=== PATIENT | male | born 1980 | race Caucasian/White ===

== ENCOUNTER 2018-03-31 09:30 | Emergency (ER) | payer MEDICAID ==
[~2018-03-31] VITALS: Ht 170.2 cm; Wt 82.0 kg
[2018-03-31] MEDS ORDERED: KETOROLAC 60MG/2ML VIAL IM ONE (10:15)
[2018-03-31] MEDS ORDERED: MORPHINE SULFATE 4 MG/ML CPJ (NOT FOR IM USE) IV ONE (11:15)
[2018-03-31 11:58] LABS: HEMATOCRIT. 42.6 % (42.0-52.0); HEMOGLOBIN. 14.5 g/dL (14.0-18.0); MEAN CORPUSCULAR VOLUME 88.2 fL (80.0-94.0); MEAN PLATELET VOLUME 7.8 fl (7.4-10.4); PLATELET 317 x1000/uL (130-400); RED BLOOD CELL COUNT 4.83 mill/uL (4.7-6.1); RED CELL DISTRIBUTION WIDTH 13.6 % (11.6-14.6)
[2018-03-31 11:59] LABS: CHLORIDE 105 mEq/L (98-107)
[2018-03-31 12:05] LABS: ETHANOL BLOOD < 10 mg/dL
[2018-03-31 12:10] LABS: PROTHROMBIN TIME 10.5 sec (9.4-11.6)
[2018-03-31] MEDS ORDERED: HYDROMORPHONE HCL/PF 2MG/ML CPJ IV ONE (12:30)
[2018-03-31] MEDS ORDERED: ETOMIDATE 2MG/ML 10ML VIAL IV ONE (12:30)
[2018-03-31] MEDS ORDERED: ONDANSETRON HCL 4MG/2ML VIAL IV ONE (12:30)
[2018-03-31 13:12] LABS: PLATELET ESTIMATE NORMAL
[2018-03-31 13:51] LABS: *COCAINE SCREEN URINE PRESUMTIVE POSITIVE (NEGATIVE); METHADONE URINE SCREEN NEGATIVE (NEGATIVE); OPIATES URINE SCREEN PRESUMTIVE POSITIVE (NEGATIVE); PHENCYCLIDINE URINE SCREEN NEGATIVE (NEGATIVE)
[2018-03-31 13:52] LABS: *AMPHETAMINES SCREEN URINE NEGATIVE (NEGATIVE); *BARBITURATES SCREEN URINE NEGATIVE (NEGATIVE); *BENZODIAZEPINES SCREEN URINE NEGATIVE (NEGATIVE); CANNABINOID URINE SCREEN NEGATIVE (NEGATIVE)
[2018-03-31 16:30] VITALS: BP 146/83
== END 2018-03-31 16:47 | disposition short-term general hospital (02) ==
LOC: ER 09:30
DX: S73.004A Unspecified dislocation of right hip, initial encounter (principal); S09.8XXA Other specified injuries of head, initial encounter; V49.49XA Driver injured in collision with other motor vehicles in traffic accident, initial encounter; W22.11XA Striking against or struck by driver side automobile airbag, initial encounter; Y93.89 Activity, other specified; M25.571 Pain in right ankle and joints of right foot; F14.10 Cocaine abuse, uncomplicated; F11.10 Opioid abuse, uncomplicated; M47.892 Other spondylosis, cervical region; Y92.488 Other paved roadways as the place of occurrence of the external cause
CPT/HCPCS: 27250; 36415; 70450; 72125; 73502; 73610; 80053; 80305; 85025; 85610; 96372; 96374; 99152; 99285; G0482; J1170; J1885; J2270; J2405; J3490; Z7610; A4315